=== PATIENT | female | born 1940 | race Caucasian/White ===

== ENCOUNTER 2022-12-10 19:24 | Emergency (ER) | payer OTHER ==
[~2022-12-10] VITALS: Ht 175.3 cm; Wt 84.8 kg
--- NOTE | 2022-12-10 19:40 | NUR ---
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 AMBULATORY, PLACED IN BED, AAOX4, ATTACHED TO MONITOR SHOWS NORMAL SINUS RHYTHM FL- 78.
--- NOTE | 2022-12-10 20:00 | NUR ---
BLOOD DRAWN AND SENT TO LAB
[2022-12-10 20:09] LABS: BASOPHILS # (AUTO) 0.1 K/uL (0.0-0.2); BASOPHILS % (AUTO) 1.9 % (0.0-2.0); EOSINOPHILS % (AUTO) 0.3 % (0.0-6.0); HEMATOCRIT 40 % (33-45); HEMOGLOBIN 13.1 g/dL (11.5-14.8); LYMPHOCYTES # (AUTO) 1.5 K/uL (0.8-4.8); LYMPHOCYTES % (AUTO) 20.6 % (20.0-44.0); MEAN CORPUSCULAR HGB CONC 33 g/dl (31.0-36.0); MEAN CORPUSCULAR VOLUME 88 fL (82-100); MONOCYTES # (AUTO) 1.9 K/uL (0.1-1.30); MONOCYTES % (AUTO) 25.1 % (2.0-12.0); NEUTROPHILS # (AUTO) 3.9 K/uL (1.8-8.9); NEUTROPHILS % (AUTO) 52.1 % (43.0-81.0); PLATELET COUNT (AUTO) 87 K/uL (150-450); RED BLOOD CELL COUNT(AUTO) 4.53 MIL/uL (4.0-5.2); WHITE BLOOD COUNT (AUTO) 7.4 K/uL (4.3-11.0)
[2022-12-10 20:37] LABS: CALCIUM, SERUM 9.5 mg/dL (8.5-10.1); CARBON DIOXIDE 26 mmol/L (21-32); CHLORIDE 106 mmol/L (98-107); GLUCOSE 98 mg/dL (74-106); SODIUM SERUM 137 mmol/L (136-145); THYROID STIMULATING HORMONE 2.106 uIU/mL (0.358-3.74); UREA NITROGEN, BLOOD 20 mg/dL (7-18)
[2022-12-10 20:59] LABS: LYMPHOCYTES % (MANUAL) 25 % (16-48); MONOCYTES % (MANUAL) 21 % (0-11.0); NEUTROPHILS % (MANUAL) 54 (42-76)
--- NOTE | 2022-12-10 22:12 | NUR ---
IV removed. Catheter intact and site benign. Pressure and 4x4 applied to site. No bleeding noted.Patient discharged to home in stable condition. Written and verbal after care instructions given. Patient verbalizes understanding of instruction.
[2022-12-10 22:17] VITALS: BP 135/87
== END 2022-12-10 22:12 | disposition home or self-care (01) ==
LOC: ER 19:28
DX: R00.2 Palpitations (principal)
CPT/HCPCS: 36415; 71045-TC; 80048-TC; 83880; 84439-TC; 84443-TC; 84484-TC; 85025-TC